=== PATIENT | female | born 1960 | race Caucasian/White ===

== ENCOUNTER 2020-06-18 04:13 | Day surgery (SDC) | payer OTHER, BC ==
[2020-06-12 16:42] VITALS: BMI 41.8
[2020-06-18] MEDS ORDERED: ONDANSETRON 4 MG/2 ML VIAL IVPUSH PRN ×2 (07:15→07:46)
[2020-06-18] MEDS ORDERED: oxyCODONE HCL 5 MG TABLET PO PRN ×2 (07:15→07:46)
[2020-06-18] MEDS ORDERED: LACTATED RINGERS SOLUTION 1,000 ML IV SCH (07:15)
[2020-06-18] MEDS ORDERED: DEXAMETHASONE SOD PHOSPHATE 4 MG/1 ML VIAL ONE (07:28)
[2020-06-18] MEDS ORDERED: KETOROLAC TROMETHAMINE 30 MG/1 ML VIAL ONE (07:28)
[2020-06-18] MEDS ORDERED: GLYCOPYRROLATE 0.2 MG/1 ML VIAL ONE (07:28)
[2020-06-18] MEDS ORDERED: MIDAZOLAM HCL 2 MG/2 ML SINGLE DOSE VIAL ONE (07:28)
[2020-06-18] MEDS ORDERED: ONDANSETRON 4 MG/2 ML VIAL ONE (07:28)
[2020-06-18] MEDS ORDERED: SUCCINYLCHOLINE CHLORIDE 200 MG/10 ML SYRINGE ONE (07:28)
[2020-06-18] MEDS ORDERED: PROPOFOL 20 ML ONE ×4 (07:29→08:27)
[2020-06-18] MEDS ORDERED: ROCURONIUM BROMIDE 100 MG/10 ML VIAL ONE (07:29)
[2020-06-18] MEDS ORDERED: IBUPROFEN 600 MG TABLET (FP) PO PRN (07:46)
[2020-06-18] MEDS ORDERED: IBUPROFEN 800 MG/8 ML IJ IVPB PRN (07:46)
[2020-06-18] MEDS ORDERED: ELECTROLYTE-148 SOLN 1,000 ML IV SCH (08:00)
[2020-06-18 12:11] VITALS: BP 123/72; PULSE 68; TEMP 97.7
== END 2020-06-18 12:05 | disposition home or self-care (01) ==
LOC: JASU-SURG 04:13
PROVIDERS: ATTEND Obstetrics & Gynecology
PROC: 0UDB7ZX Extraction of Endometrium, Via Natural or Artificial Opening, Diagnostic (ICD-10-PCS; 2020-06-18)
PROC: 0UJD8ZZ Inspection of Uterus and Cervix, Via Natural or Artificial Opening Endoscopic (ICD-10-PCS; 2020-06-18)
PROC: 0UBC7ZX Excision of Cervix, Via Natural or Artificial Opening, Diagnostic (ICD-10-PCS; principal; 2020-06-18 07:30)
PROC: 0UB97ZX Excision of Uterus, Via Natural or Artificial Opening, Diagnostic (ICD-10-PCS; 2020-06-18 07:30)
DX: N95.0 Postmenopausal bleeding (principal); N84.0 Polyp of corpus uteri; N84.1 Polyp of cervix uteri
CPT/HCPCS: 71046-TC-FY; 88305-TC; 94760